=== PATIENT | female | born 1940 | race Caucasian/White ===

== ENCOUNTER 2024-05-18 13:31 | Outpatient (AMB) | payer MEDICARE, BC, SELFPAY ==
[2024-05-18 13:43] VITALS: BP 130/64; PULSE 65; RESP 18; TEMP 36.6; O2SAT 92; BMI 38.1
--- NOTE | 2024-05-18 13:43 | PD.ORTHCLVIS ---
Vital signs 05/18/24 13:43 Height 1.57 m Height Method Stated Weight 94.092 kg Weight Measurement Method Standing Scale BMI 38.1 BP 130/64 Blood Pressure Source Automatic Cuff Blood Pressure Location Right Upper Arm Position Sitting Respiration 18 Pulse 65 Pulse Source Monitor Temp 97.9 F Temp Source Temporal Artery Scan Pulse Oximetry (%) 92 L Oxygen Delivery Method Room Air Med/Allergies Allergies & Medications Allergies No Known Allergies Allergy (Verified 05/18/24 13:45) Medication Reconciliation albuterol sulfate 90 mcg/actuation aerosol inhaler 1 inh inhalation QID 02/17/24 [History Confirmed 05/18/24] ascorbic acid (vitamin C) 500 mg capsule mg PO 02/17/24 [History Confirmed 05/18/24] betamethasone dipropionate 0.05 % topical cream 1 applic topical QDAY PRN 02/17/24 [History Confirmed 05/18/24] celecoxib 100 mg capsule (Celebrex) 100 mg PO BID 02/17/24 [History Confirmed 05/18/24] cephalexin 250 mg capsule 250 mg PO BID 02/17/24 [History Confirmed 05/18/24] cholecalciferol (vitamin D3) 50 mcg (2,000 unit) capsule 50 mcg PO QDAY 02/17/24 [History Confirmed 05/18/24] clopidogrel 75 mg tablet (Plavix) 75 mg PO QDAY 02/17/24 [History Confirmed 05/18/24] coenzyme Q10 200 mg/gram oral powder (H2Q CoQ10) mg PO 02/17/24 [History Confirmed 05/18/24] eszopiclone 2 mg tablet (Lunesta) 2 mg PO QHS 02/17/24 [History Confirmed 05/18/24] fentanyl 50 mcg/hr transdermal patch 1 patch transdermal Q72H 02/17/24 [History Confirmed 05/18/24] fluticasone 250 mcg-salmeterol 50 mcg/dose blistr powdr for inhalation (Advair Diskus) 1 inh inhalation BID 02/17/24 [History Confirmed 05/18/24] furosemide 20 mg tablet (Lasix) 20 mg PO Q OTHER DAY 02/17/24 [History Confirmed 05/18/24] gabapentin 300 mg capsule 300 mg PO QDAY 02/17/24 [History Confirmed 05/18/24] hydrocodone bitartrate 10 mg capsule, oral only, extended rel 12 hr 10 mg PO Q12H 02/17/24 [History Confirmed 05/18/24] losartan 50 mg tablet 50 mg PO QDAY 02/17/24 [History Confirmed 05/18/24] mecobalamin (vitamin B12) 2,500 mcg chewable tablet mcg PO 02/17/24 [History Confirmed 05/18/24] methenamine hippurate 1 gram tablet 1 g PO Q12H 02/17/24 [History Confirmed 05/18/24] montelukast 10 mg tablet (Singulair) 10 mg PO QDAY 02/17/24 [History Confirmed 05/18/24] naldemedine 0.2 mg tablet (Symproic) 0.2 mg PO QDAY 02/17/24 [History Confirmed 05/18/24] nitroglycerin 0.4 % (w/w) rectal ointment 1 inch [place] BID 02/17/24 [History Confirmed 05/18/24] omega-3 650 mg-dha 400 mg-epa 200 mg-fish oil-vit D3 300 unit capsule cap PO 02/17/24 [History Confirmed 05/18/24] omeprazole 20 mg capsule,delayed release 20 mg PO QDAY 02/17/24 [History Confirmed 05/18/24] prednisone 20 mg tablet 20 mg PO QDAY 02/17/24 [History Confirmed 05/18/24] rosuvastatin 20 mg tablet 20 mg PO QDAY 02/17/24 [History Confirmed 05/18/24] sertraline 20 mg/mL oral concentrate (Zoloft) 50 mg PO QDAY 02/17/24 [History Confirmed 05/18/24] triamcinolone acetonide 55 mcg nasal spray aerosol (24 Hour Nasal Allergy) 1 spray intranasal QDAY 02/17/24 [History Confirmed 05/18/24] vitamin E (dl, acetate) 180 mg (400 unit) capsule 180 mg PO QDAY 02/17/24 [History Confirmed 05/18/24] Subjective Visit Visit for: follow up visit and knee Immunization / Flu Flu Vaccine in the Last 12 Months: Yes Flu Vaccine Exclusion Criteria: Already Received History of Present Illness Chief complaint: F/U KNEE INJECTIONS Patient is a pleasant 83-year-old female with bilateral knee pain worse on the right. This been ongoing for several years. She tried multiple injections with me. She recently had a valve replacement 1 month ago is on Plavix. She is looking for 6 continue conservative treatment at this time Personal History Occupation: RETIRED Pain Pain level (0-10): 4 Pain duration: ALL DAY Pain location: inside (medial), outside (lateral), anterior and posterior Pain quality: sharp, dull and aching Pain timing: increases with activity Associated signs & symptoms: none Ambulatory data Ambulatory device: walker Treatments Improvement with previous injections: No Improvement with PT: No Improvement with NSAIDS: n/a Review of Systems Review of Systems: All systems negative unless otherwise noted in HPI. Exam Exam Patient is in no acute distress and is cooperative with the examination today. Breathing is nonlabored. In no respiratory distress. Bilateral extremities were evaluated and demonstrates sensation intact to light touch. Palpable pedal pulses are present. No significant edema is present. Bilateral hips were examined. The patient has no pain with log roll of the hips. Internal rotation to 30 degrees and external rotation to 30 degrees is painless. Negative FADIR. The left knee was examined. The left knee is in [varus] alignment. Range of motion from [0-115] degrees. Knee is stable to varus and valgus as well as AP translation with <5mm. Patient has a [negative] McMurrays. There is [no] pain with patellofemoral compression and [no] crepitus noted. The knee is [tender] to palpation [medially]. The right knee was also examined. The right knee is in [varus] alignment. Range of motion from [0-120] degrees. Knee is stable to varus and valgus as well as AP translation with <5mm. Patient has a [negative] McMurrays. There is [no] pain with patellofemoral compression and [no] crepitus noted. The knee is [tender] to palpation [medially]. Assessment and Plan Problem List (1) Degenerative arthritis of knee, bilateral: Status: Acute Plan: 83-year-old female with bilateral knee pain and bilateral knee osteoarthritis. We discussed nonoperative and operative options. Given she had a recent valve replacement we recommend nonoperative treatment. She would like a left knee injection today Recommend knee cortisone injection as patient would like to proceed with conservative treatment at this time. The risks and benefits of the procedure were reviewed with the patient and patient gave verbal consent to continue with the procedure. Procedure: performed by Dr. Nava Using sterile technique the left knee was thoroughly prepped with alcohol, and approximately 1 cc of Kenalog 40 mg/mL and 4 cc of 1% lidocaine was injected without resistance into the medial tibial femoral joint space. The patient tolerated the procedure. (2) Bilateral knee pain: Status: Acute Advanced Care Planning Discussion Advance care planning discussed with:: patient Office Procedures GNS Level of Care Nursing/Assessment Patient Status: Established Patient Nursing Assessment/Reassesment: Medication Reconciliation, Update PMH in EMR and Vital Signs Coordination of Care: Complex Care and Chronic Disease 1-5, Education Complex Pt/Fam, Consent,records obtained, informed consent, Results/Orders obtained and Staff clarify orders Special Needs: Language special needs Established Patient Charge Established Patient Point Assignment: 95 Established Patient Point Charge: EP Level 3 (80-115) Surgical Proc/IM SQ injection Major Surgical Procedure: Yes (KNEE INJECTION) Medication Given Medication Given Medication Given: Yes Documented Dose Given: 4 Route: Infiitration Medication Given Medication Given Medication Given: Yes Documented Dose Given: 1 Route: Infiitration Office Meds Xylocaine 10 mg/mL (1 %) injection solution Performing Provider: Hever Nava MD Performing Location: [facility] Administered by: Hever Nava MD on 05/18/24 14:23 Dose Route Admin Location Dispensed Lot Number Expiration Date [facility] [place] [employer] 20 mL Infiltration 20 mL [id number] [facility] triamcinolone acetonide 40 mg/mL suspension for injection Performing Provider: Hever Nava MD Performing Location: [facility] Administered by: Hever Nava MD on 05/18/24 14:23 Dose Route Admin Location Dispensed Lot Number Expiration Date [facility] [place] [employer] 40 mg intra-articular 1 mL [id number] [employer] Past Medical History Past Medical History Have you ever been diagnosed with any of the following: Respiratory Problems Smoking: No Smoking Exposure: No
== END 2024-05-18 14:14 | disposition home or self-care (01) ==
PROVIDERS: Supervising Provider Orthopaedic Surgery Adult Reconstructive Orthopaedic Surgery; Visit Provider Orthopaedic Surgery Adult Reconstructive Orthopaedic Surgery
DX: M17.0 Bilateral primary osteoarthritis of knee (principal); M25.562 Pain in left knee; M25.561 Pain in right knee; Z95.2 Presence of prosthetic heart valve
CPT/HCPCS: 20610; 99213; J3301; J3490; G0463

== ENCOUNTER 2024-06-18 12:57 | Outpatient (AMB) | payer MEDICARE, BC, SELFPAY ==
[2024-06-18 13:07] VITALS: BP 141/79; PULSE 67; RESP 18; TEMP 36.1; O2SAT 95; BMI 37.2
--- NOTE | 2024-06-18 13:07 | PD.ORTHCLVIS ---
Vital signs 06/18/24 13:07 Height 1.57 m Height Method Stated Weight 91.711 kg Weight Measurement Method Standing Scale BMI 37.2 BP 141/79 H Blood Pressure Source Automatic Cuff Blood Pressure Location Right Upper Arm Position Sitting Respiration 18 Pulse 67 Pulse Source Monitor Temp 97.0 F Temp Source Temporal Artery Scan Pulse Oximetry (%) 95 Oxygen Delivery Method Room Air Med/Allergies Allergies & Medications Allergies No Known Allergies Allergy (Verified 06/18/24 13:07) Medication Reconciliation albuterol sulfate 90 mcg/actuation aerosol inhaler 1 inh inhalation QID 02/17/24 [History Confirmed 06/18/24] ascorbic acid (vitamin C) 500 mg capsule mg PO 02/17/24 [History Confirmed 06/18/24] betamethasone dipropionate 0.05 % topical cream 1 applic topical QDAY PRN 02/17/24 [History Confirmed 06/18/24] celecoxib 100 mg capsule (Celebrex) 100 mg PO BID 02/17/24 [History Confirmed 06/18/24] cephalexin 250 mg capsule 250 mg PO BID 02/17/24 [History Confirmed 06/18/24] cholecalciferol (vitamin D3) 50 mcg (2,000 unit) capsule 50 mcg PO QDAY 02/17/24 [History Confirmed 06/18/24] clopidogrel 75 mg tablet (Plavix) 75 mg PO QDAY 02/17/24 [History Confirmed 06/18/24] coenzyme Q10 200 mg/gram oral powder (H2Q CoQ10) mg PO 02/17/24 [History Confirmed 06/18/24] eszopiclone 2 mg tablet (Lunesta) 2 mg PO QHS 02/17/24 [History Confirmed 06/18/24] fentanyl 50 mcg/hr transdermal patch 1 patch transdermal Q72H 02/17/24 [History Confirmed 06/18/24] fluticasone 250 mcg-salmeterol 50 mcg/dose blistr powdr for inhalation (Advair Diskus) 1 inh inhalation BID 02/17/24 [History Confirmed 06/18/24] furosemide 20 mg tablet (Lasix) 20 mg PO Q OTHER DAY 02/17/24 [History Confirmed 06/18/24] gabapentin 300 mg capsule 300 mg PO QDAY 02/17/24 [History Confirmed 06/18/24] hydrocodone bitartrate 10 mg capsule, oral only, extended rel 12 hr 10 mg PO Q12H 02/17/24 [History Confirmed 06/18/24] losartan 50 mg tablet 50 mg PO QDAY 02/17/24 [History Confirmed 06/18/24] mecobalamin (vitamin B12) 2,500 mcg chewable tablet mcg PO 02/17/24 [History Confirmed 06/18/24] methenamine hippurate 1 gram tablet 1 g PO Q12H 02/17/24 [History Confirmed 06/18/24] montelukast 10 mg tablet (Singulair) 10 mg PO QDAY 02/17/24 [History Confirmed 06/18/24] naldemedine 0.2 mg tablet (Symproic) 0.2 mg PO QDAY 02/17/24 [History Confirmed 06/18/24] nitroglycerin 0.4 % (w/w) rectal ointment 1 inch [place] BID 02/17/24 [History Confirmed 06/18/24] omega-3 650 mg-dha 400 mg-epa 200 mg-fish oil-vit D3 300 unit capsule cap PO 02/17/24 [History Confirmed 06/18/24] omeprazole 20 mg capsule,delayed release 20 mg PO QDAY 02/17/24 [History Confirmed 06/18/24] prednisone 20 mg tablet 20 mg PO QDAY 02/17/24 [History Confirmed 06/18/24] rosuvastatin 20 mg tablet 20 mg PO QDAY 02/17/24 [History Confirmed 06/18/24] sertraline 20 mg/mL oral concentrate (Zoloft) 50 mg PO QDAY 02/17/24 [History Confirmed 06/18/24] triamcinolone acetonide 55 mcg nasal spray aerosol (24 Hour Nasal Allergy) 1 spray intranasal QDAY 02/17/24 [History Confirmed 06/18/24] vitamin E (dl, acetate) 180 mg (400 unit) capsule 180 mg PO QDAY 02/17/24 [History Confirmed 06/18/24] Subjective Visit Visit for: follow up visit Immunization / Flu Flu Vaccine in the Last 12 Months: Yes Flu Vaccine Exclusion Criteria: Already Received History of Present Illness Chief complaint: FOLLOW UP VISIT Patient is a pleasant 83-year-old female with bilateral knee pain worse on the right. This been ongoing for several years. She tried multiple injections with me. She recently had a valve replacement 3 month ago is on Plavix. She is looking to continue conservative treatment at this time Personal History Occupation: RETIRED Pain Pain level (0-10): 0 Pain duration: ALL DAY Pain location: inside (medial), outside (lateral), anterior and posterior Pain quality: sharp, dull and aching Pain timing: increases with activity Associated signs & symptoms: none Ambulatory data Ambulatory device: none Treatments Improvement with previous injections: No Improvement with PT: No Improvement with NSAIDS: n/a Review of Systems Review of Systems: All systems negative unless otherwise noted in HPI. Exam Exam Patient is in no acute distress and is cooperative with the examination today. Breathing is nonlabored. In no respiratory distress. Bilateral extremities were evaluated and demonstrates sensation intact to light touch. Palpable pedal pulses are present. No significant edema is present. Bilateral hips were examined. The patient has no pain with log roll of the hips. Internal rotation to 30 degrees and external rotation to 30 degrees is painless. Negative FADIR. The left knee was examined. The left knee is in [varus] alignment. Range of motion from [0-115] degrees. Knee is stable to varus and valgus as well as AP translation with <5mm. Patient has a [negative] McMurrays. There is [no] pain with patellofemoral compression and [no] crepitus noted. The knee is [tender] to palpation [medially]. The right knee was also examined. The right knee is in [varus] alignment. Range of motion from [0-120] degrees. Knee is stable to varus and valgus as well as AP translation with <5mm. Patient has a [negative] McMurrays. There is [no] pain with patellofemoral compression and [no] crepitus noted. The knee is [tender] to palpation [medially]. Bilateral knee x-rays demonstrate severe arthritis in both knees. The left is greater than the right but there is complete joint space obliteration Assessment and Plan Problem List (1) Degenerative arthritis of knee, bilateral: Status: Acute Plan: 83-year-old female with bilateral knee pain and bilateral knee osteoarthritis. We discussed nonoperative and operative options. Given she had a recent valve replacement we recommend nonoperative treatment. She is doing well with a cortisone injection and we will thus hold off for now. (2) Bilateral knee pain: Status: Acute Advanced Care Planning Discussion Advance care planning discussed with:: patient Office Procedures GNS Level of Care Nursing/Assessment Patient Status: Established Patient Nursing Assessment/Reassesment: Medication Reconciliation, Update PMH in EMR and Vital Signs Coordination of Care: Complex Care and Chronic Disease 1-5, Education Complex Pt/Fam, Consent,records obtained, informed consent, Results/Orders obtained and Staff clarify orders Established Patient Charge Established Patient Point Assignment: 95 Established Patient Point Charge: EP Level 3 (80-115) Past Medical History Past Medical History Have you ever been diagnosed with any of the following: Respiratory Problems Smoking: No Smoking Exposure: No
== END 2024-06-18 13:20 | disposition home or self-care (01) ==
LOC: HODSRG 12:57
PROVIDERS: PCP Internal Medicine Hospice and Palliative Medicine; Referring Provider Internal Medicine Hospice and Palliative Medicine; Supervising Provider Orthopaedic Surgery Adult Reconstructive Orthopaedic Surgery; Visit Provider Orthopaedic Surgery Adult Reconstructive Orthopaedic Surgery
DX: M17.0 Bilateral primary osteoarthritis of knee (principal); M25.562 Pain in left knee; M25.561 Pain in right knee; Z95.2 Presence of prosthetic heart valve; Z79.02 Long term (current) use of antithrombotics/antiplatelets
CPT/HCPCS: 99213; G0463

== ENCOUNTER 2024-08-17 13:20 | Outpatient (AMB) | payer MEDICARE, BC, SELFPAY ==
[2024-08-17 13:28] VITALS: BP 122/82; PULSE 69; RESP 18; TEMP 36; O2SAT 95; BMI 36.6
--- NOTE | 2024-08-17 13:28 | PD.ORTHCLVIS ---
Vital signs 08/17/24 13:28 Height 1.57 m Height Method Stated Weight 90.322 kg Weight Measurement Method Standing Scale BMI 36.6 BP 122/82 Blood Pressure Source Automatic Cuff Blood Pressure Location Right Upper Arm Position Sitting Respiration 18 Pulse 69 Pulse Source Monitor Temp 96.8 F Temp Source Temporal Artery Scan Pulse Oximetry (%) 95 Oxygen Delivery Method Room Air Med/Allergies Allergies & Medications Allergies No Known Allergies Allergy (Verified 08/17/24 13:39) Medication Reconciliation albuterol sulfate 90 mcg/actuation aerosol inhaler 1 inh inhalation QID 02/17/24 [History Confirmed 08/17/24] ascorbic acid (vitamin C) 500 mg capsule mg PO 02/17/24 [History Confirmed 08/17/24] betamethasone dipropionate 0.05 % topical cream 1 applic topical QDAY PRN 02/17/24 [History Confirmed 08/17/24] celecoxib 100 mg capsule (Celebrex) 100 mg PO BID 02/17/24 [History Confirmed 08/17/24] cephalexin 250 mg capsule 250 mg PO BID 02/17/24 [History Confirmed 08/17/24] cholecalciferol (vitamin D3) 50 mcg (2,000 unit) capsule 50 mcg PO QDAY 02/17/24 [History Confirmed 08/17/24] clopidogrel 75 mg tablet (Plavix) 75 mg PO QDAY 02/17/24 [History Confirmed 08/17/24] coenzyme Q10 200 mg/gram oral powder (H2Q CoQ10) mg PO 02/17/24 [History Confirmed 08/17/24] eszopiclone 2 mg tablet (Lunesta) 2 mg PO QHS 02/17/24 [History Confirmed 08/17/24] fentanyl 50 mcg/hr transdermal patch 1 patch transdermal Q72H 02/17/24 [History Confirmed 08/17/24] fluticasone 250 mcg-salmeterol 50 mcg/dose blistr powdr for inhalation (Advair Diskus) 1 inh inhalation BID 02/17/24 [History Confirmed 08/17/24] furosemide 20 mg tablet (Lasix) 20 mg PO Q OTHER DAY 02/17/24 [History Confirmed 08/17/24] gabapentin 300 mg capsule 300 mg PO QDAY 02/17/24 [History Confirmed 08/17/24] hydrocodone bitartrate 10 mg capsule, oral only, extended rel 12 hr 10 mg PO Q12H 02/17/24 [History Confirmed 08/17/24] losartan 50 mg tablet 50 mg PO QDAY 02/17/24 [History Confirmed 08/17/24] mecobalamin (vitamin B12) 2,500 mcg chewable tablet mcg PO 02/17/24 [History Confirmed 08/17/24] methenamine hippurate 1 gram tablet 1 g PO Q12H 02/17/24 [History Confirmed 08/17/24] montelukast 10 mg tablet (Singulair) 10 mg PO QDAY 02/17/24 [History Confirmed 08/17/24] naldemedine 0.2 mg tablet (Symproic) 0.2 mg PO QDAY 02/17/24 [History Confirmed 08/17/24] nitroglycerin 0.4 % (w/w) rectal ointment 1 inch [place] BID 02/17/24 [History Confirmed 08/17/24] omega-3 650 mg-dha 400 mg-epa 200 mg-fish oil-vit D3 300 unit capsule cap PO 02/17/24 [History Confirmed 08/17/24] omeprazole 20 mg capsule,delayed release 20 mg PO QDAY 02/17/24 [History Confirmed 08/17/24] prednisone 20 mg tablet 20 mg PO QDAY 02/17/24 [History Confirmed 08/17/24] rosuvastatin 20 mg tablet 20 mg PO QDAY 02/17/24 [History Confirmed 08/17/24] sertraline 20 mg/mL oral concentrate (Zoloft) 50 mg PO QDAY 02/17/24 [History Confirmed 08/17/24] triamcinolone acetonide 55 mcg nasal spray aerosol (24 Hour Nasal Allergy) 1 spray intranasal QDAY 02/17/24 [History Confirmed 08/17/24] vitamin E (dl, acetate) 180 mg (400 unit) capsule 180 mg PO QDAY 02/17/24 [History Confirmed 08/17/24] Exam Exam Patient is in no acute distress and is cooperative with the examination today. Breathing is nonlabored. In no respiratory distress. Bilateral extremities were evaluated and demonstrates sensation intact to light touch. Palpable pedal pulses are present. No significant edema is present. Bilateral hips were examined. The patient has no pain with log roll of the hips. Internal rotation to 30 degrees and external rotation to 30 degrees is painless. Negative FADIR. The left knee was examined. The left knee is in [varus] alignment. Range of motion from [0-115] degrees. Knee is stable to varus and valgus as well as AP translation with <5mm. Patient has a [negative] McMurrays. There is [no] pain with patellofemoral compression and [no] crepitus noted. The knee is [tender] to palpation [medially]. The right knee was also examined. The right knee is in [varus] alignment. Range of motion from [0-120] degrees. Knee is stable to varus and valgus as well as AP translation with <5mm. Patient has a [negative] McMurrays. There is [no] pain with patellofemoral compression and [no] crepitus noted. The knee is [tender] to palpation [medially]. Bilateral knee x-rays demonstrate severe arthritis in both knees. The left is greater than the right but there is complete joint space obliteration Assessment and Plan Problem List (1) Degenerative arthritis of knee, bilateral: Status: Acute Plan: 83-year-old female with bilateral knee pain and bilateral knee osteoarthritis. We discussed nonoperative and operative options. Given she had a recent valve replacement we recommend nonoperative treatment. Recommend knee cortisone injection as patient would like to proceed with conservative treatment at this time. The risks and benefits of the procedure were reviewed with the patient and patient gave verbal consent to continue with the procedure. Procedure: performed by Dr. Nava Using sterile technique the Right knee was thoroughly prepped with alcohol, and approximately 1 cc of Kenalog 40 mg/mL and 4 cc of 1% lidocaine was injected without resistance into the medial tibial femoral joint space. The patient tolerated the procedure. (2) Bilateral knee pain: Status: Acute Advanced Care Planning Discussion Advance care planning discussed with:: patient Office Procedures GNS Level of Care Nursing/Assessment Patient Status: Established Patient Nursing Assessment/Reassesment: Medication Reconciliation, Update PMH in EMR and Vital Signs Coordination of Care: Complex Care and Chronic Disease 1-5, Education Complex Pt/Fam, Consent,records obtained, informed consent, Results/Orders obtained and Staff clarify orders Established Patient Charge Established Patient Point Assignment: 95 Established Patient Point Charge: EP Level 3 (80-115) Medication Given Medication Given Medication Given: Yes Documented Dose Given: 4 Route: Infiitration Medication Given Medication Given Medication Given: Yes Documented Dose Given: 1 Route: Infiitration Office Meds Xylocaine 10 mg/mL (1 %) injection solution Performing Provider: Hever Nava MD Performing Location: [facility] Administered by: Hever Nava MD on 08/17/24 13:40 Dose Route Admin Location Dispensed Lot Number Expiration Date [facility] [place] [employer] 20 mL Infiltration 20 mL [id number] [facility] triamcinolone acetonide 40 mg/mL suspension for injection Performing Provider: Hever Nava MD Performing Location: [facility] Administered by: Hever Nava MD on 08/17/24 13:40 Dose Route Admin Location Dispensed Lot Number Expiration Date [facility] [place] [employer] 40 mg intra-articular RIGHT KNEE 1 mL [id number] 11/25/25 [id number] [employer] MA Intake Visit Data Collection New Patient or Established: Established Patient (seen at [facility] within 3 years) Reason for Visit:: KNEE INJECTION Seen by Clinical Staff ONLY (RN/MA): No Verbal consent obtained for Telemed visit?: No Xm1 [employer] Required: No PCP or OBGYN visit in last 3 months: Yes Hx Now: No Do You Feel Safe at Home: Yes Authorities Contacted: N/A Questionairres Past Medical History Past Medical History Have you ever been diagnosed with any of the following: Respiratory Problems Smoking: No Smoking Exposure: No Subjective Visit Visit for: follow up visit, knee and injections Immunization / Flu Flu Vaccine in the Last 12 Months: Yes Flu Vaccine Exclusion Criteria: Already Received History of Present Illness Chief complaint: right knee replacement Patient is a pleasant 83-year-old female with bilateral knee pain worse on the right. This been ongoing for several years. She tried multiple injections with me. She recently had a valve replacement 6 month ago is on Plavix. She is looking to continue conservative treatment at this time Pain Pain level (0-10): 5 Ambulatory data Ambulatory device: walker Treatments Improvement with previous injections: Yes Improvement with PT: No Improvement with NSAIDS: no Review of Systems Review of Systems: All systems negative unless otherwise noted in HPI.
== END 2024-08-17 14:08 | disposition home or self-care (01) ==
PROVIDERS: PCP Internal Medicine Hospice and Palliative Medicine; Referring Provider Internal Medicine Hospice and Palliative Medicine; Supervising Provider Orthopaedic Surgery Adult Reconstructive Orthopaedic Surgery; Visit Provider Orthopaedic Surgery Adult Reconstructive Orthopaedic Surgery
DX: M17.0 Bilateral primary osteoarthritis of knee (principal); M25.562 Pain in left knee; M25.561 Pain in right knee; Z95.2 Presence of prosthetic heart valve
CPT/HCPCS: 20610; 99213; J3301; J3490; G0463

== ENCOUNTER 2024-11-16 12:54 | Outpatient (AMB) | payer MEDICARE, BC, SELFPAY ==
[2024-11-16 13:03] VITALS: BP 124/72; PULSE 70; RESP 18; TEMP 36.2; O2SAT 93; BMI 34.9
--- NOTE | 2024-11-16 13:03 | PD.ORTHCLVIS ---
Vital signs 11/16/24 13:03 Height 1.57 m Height Method Stated Weight 86.268 kg Weight Measurement Method Standing Scale BMI 34.9 BP 124/72 Blood Pressure Source Automatic Cuff Blood Pressure Location Left Upper Arm Position Sitting Respiration 18 Pulse 70 Pulse Source Monitor Temp 97.1 F Temp Source Temporal Artery Scan Pulse Oximetry (%) 93 L Oxygen Delivery Method Room Air Med/Allergies Allergies & Medications Allergies No Known Allergies Allergy (Verified 11/16/24 13:04) Medication Reconciliation albuterol sulfate 90 mcg/actuation aerosol inhaler 1 inh inhalation QID 02/17/24 [History Confirmed 11/16/24] ascorbic acid (vitamin C) 500 mg capsule mg PO 02/17/24 [History Confirmed 11/16/24] betamethasone dipropionate 0.05 % topical cream 1 applic topical QDAY PRN 02/17/24 [History Confirmed 11/16/24] celecoxib 100 mg capsule (Celebrex) 100 mg PO BID 02/17/24 [History Confirmed 11/16/24] cephalexin 250 mg capsule 250 mg PO BID 02/17/24 [History Confirmed 11/16/24] cholecalciferol (vitamin D3) 50 mcg (2,000 unit) capsule 50 mcg PO QDAY 02/17/24 [History Confirmed 11/16/24] clopidogrel 75 mg tablet (Plavix) 75 mg PO QDAY 02/17/24 [History Confirmed 11/16/24] coenzyme Q10 200 mg/gram oral powder (H2Q CoQ10) mg PO 02/17/24 [History Confirmed 11/16/24] eszopiclone 2 mg tablet (Lunesta) 2 mg PO QHS 02/17/24 [History Confirmed 11/16/24] fentanyl 50 mcg/hr transdermal patch 1 patch transdermal Q72H 02/17/24 [History Confirmed 11/16/24] fluticasone 250 mcg-salmeterol 50 mcg/dose blistr powdr for inhalation (Advair Diskus) 1 inh inhalation BID 02/17/24 [History Confirmed 11/16/24] furosemide 20 mg tablet (Lasix) 20 mg PO Q OTHER DAY 02/17/24 [History Confirmed 11/16/24] gabapentin 300 mg capsule 300 mg PO QDAY 02/17/24 [History Confirmed 11/16/24] hydrocodone bitartrate 10 mg capsule, oral only, extended rel 12 hr 10 mg PO Q12H 02/17/24 [History Confirmed 11/16/24] losartan 50 mg tablet 50 mg PO QDAY 02/17/24 [History Confirmed 11/16/24] mecobalamin (vitamin B12) 2,500 mcg chewable tablet mcg PO 02/17/24 [History Confirmed 11/16/24] methenamine hippurate 1 gram tablet 1 g PO Q12H 02/17/24 [History Confirmed 11/16/24] montelukast 10 mg tablet (Singulair) 10 mg PO QDAY 02/17/24 [History Confirmed 11/16/24] naldemedine 0.2 mg tablet (Symproic) 0.2 mg PO QDAY 02/17/24 [History Confirmed 11/16/24] nitroglycerin 0.4 % (w/w) rectal ointment 1 inch PA BID 02/17/24 [History Confirmed 11/16/24] omega-3 650 mg-dha 400 mg-epa 200 mg-fish oil-vit D3 300 unit capsule cap PO 02/17/24 [History Confirmed 11/16/24] omeprazole 20 mg capsule,delayed release 20 mg PO QDAY 02/17/24 [History Confirmed 11/16/24] prednisone 20 mg tablet 20 mg PO QDAY 02/17/24 [History Confirmed 11/16/24] rosuvastatin 20 mg tablet 20 mg PO QDAY 02/17/24 [History Confirmed 11/16/24] sertraline 20 mg/mL oral concentrate (Zoloft) 50 mg PO QDAY 02/17/24 [History Confirmed 11/16/24] triamcinolone acetonide 55 mcg nasal spray aerosol (24 Hour Nasal Allergy) 1 spray intranasal QDAY 02/17/24 [History Confirmed 11/16/24] vitamin E (dl, acetate) 180 mg (400 unit) capsule 180 mg PO QDAY 02/17/24 [History Confirmed 11/16/24] Exam Exam Patient is in no acute distress and is cooperative with the examination today. Breathing is nonlabored. In no respiratory distress. Bilateral extremities were evaluated and demonstrates sensation intact to light touch. Palpable pedal pulses are present. No significant edema is present. Bilateral hips were examined. The patient has no pain with log roll of the hips. Internal rotation to 30 degrees and external rotation to 30 degrees is painless. Negative FADIR. The left knee was examined. The left knee is in [varus] alignment. Range of motion from [0-115] degrees. Knee is stable to varus and valgus as well as AP translation with <5mm. Patient has a [negative] McMurrays. There is [no] pain with patellofemoral compression and [no] crepitus noted. The knee is [tender] to palpation [medially]. The right knee was also examined. The right knee is in [varus] alignment. Range of motion from [0-120] degrees. Knee is stable to varus and valgus as well as AP translation with <5mm. Patient has a [negative] McMurrays. There is [no] pain with patellofemoral compression and [no] crepitus noted. The knee is [tender] to palpation [medially]. Bilateral knee x-rays demonstrate severe arthritis in both knees. The left is greater than the right but there is complete joint space obliteration Assessment and Plan Problem List (1) Degenerative arthritis of knee, bilateral: Status: Acute Plan: 83-year-old female with bilateral knee pain and bilateral knee osteoarthritis. We discussed nonoperative and operative options. Given she had a recent valve replacement we recommend nonoperative treatment. Recommend knee cortisone injections as patient would like to proceed with conservative treatment at this time. The risks and benefits of the procedure were reviewed with the patient and patient gave verbal consent to continue with the procedure. Procedure: performed by Dr. Nava Using sterile technique the Bilateral knees were thoroughly prepped with alcohol, and approximately 1 cc of Kenalog 40 mg/mL and 4 cc of 1% lidocaine was injected into each knee without resistance into the medial tibial femoral joint space. The patient tolerated the procedure. (2) Bilateral knee pain: Status: Acute Advanced Care Planning Discussion Advance care planning discussed with:: patient Office Procedures GNS Level of Care Nursing/Assessment Patient Status: Established Patient Nursing Assessment/Reassesment: Medication Reconciliation, Update PMH in EMR and Vital Signs Coordination of Care: Complex Care and Chronic Disease 1-5, Education Complex Pt/Fam, Consent,records obtained, informed consent, Results/Orders obtained and Staff clarify orders Established Patient Charge Established Patient Point Assignment: 95 Established Patient Point Charge: EP Level 3 (80-115) Surgical Proc/IM SQ injection Major Surgical Procedure: Yes (KNEE INJECTIONS ) Medication Given Medication Given Medication Given: Yes Documented Dose Given: 8 Route: Infiitration Medication Given Medication Given Medication Given: Yes Documented Dose Given: 2 Route: Infiitration Office Meds Xylocaine 10 mg/mL (1 %) injection solution Performing Provider: Hever Nava MD Performing Location: [facility] Administered by: Hever Nava MD on 11/16/24 14:08 Dose Route Admin Location Dispensed Lot Number Expiration Date [facility] Bill Distributor 40 mL Infiltration 40 mL [id number] 12/27/27 76126-342-77 [facility] triamcinolone acetonide 40 mg/mL suspension for injection Performing Provider: Hever Nava MD Performing Location: [facility] Administered by: Hever Nava MD on 11/16/24 14:08 Dose Route Admin Location Dispensed Lot Number Expiration Date [facility] Bill Distributor 80 mg intra-articular 2 mL [id number] 04/27/26 5331-5602-78 [employer] [place] Intake Visit Data Collection New Patient or Established: Established Patient (seen at [facility] within 3 years) Reason for Visit:: BILATERAL KNEE INJECTIONS Seen by Clinical Staff ONLY (RN/MA): No PCP or OBGYN visit in last 3 months: Yes Hx Now: No Do You Feel Safe at Home: Yes Authorities Contacted: N/A Questionairres Past Medical History Past Medical History Have you ever been diagnosed with any of the following: Respiratory Problems Smoking: No Smoking Exposure: No Subjective Visit Visit for: follow up visit, knee (BILATERAL) and injections Immunization / Flu Flu Vaccine in the Last 12 Months: No Flu Vaccine Exclusion Criteria: No Exclusion Criteria History of Present Illness Chief complaint: right knee replacement Patient is a pleasant 83-year-old female with bilateral knee pain worse on the right. This been ongoing for several years. She tried multiple injections with me. She recently had a valve replacement 6 month ago is on Plavix. She is looking to continue conservative treatment at this time Pain Pain level (0-10): 6 Pain duration: ON AND OFF Pain location: anterior Pain quality: dull and aching Pain timing: increases with activity Associated signs & symptoms: weakness Ambulatory data Ambulatory device: walker Treatments Number of previous injections: 1 Improvement with previous injections: Yes Improvement with PT: No Improvement with NSAIDS: no Review of Systems Review of Systems: All systems negative unless otherwise noted in HPI.
== END 2024-11-16 13:15 | disposition home or self-care (01) ==
PROVIDERS: PCP Internal Medicine Hospice and Palliative Medicine; Referring Provider Internal Medicine Hospice and Palliative Medicine; Supervising Provider Orthopaedic Surgery Adult Reconstructive Orthopaedic Surgery; Visit Provider Orthopaedic Surgery Adult Reconstructive Orthopaedic Surgery
DX: M17.0 Bilateral primary osteoarthritis of knee (principal); Z95.2 Presence of prosthetic heart valve
CPT/HCPCS: 20610; 99213; J3301; J3490; G0463

== ENCOUNTER 2025-03-17 13:41 | Outpatient (AMB) | payer MEDICARE, BC, SELFPAY ==
--- NOTE | 2025-03-17 13:56 | ORTHONT_ITS ---
Vital signs 03/17/25 13:57 Height 1.57 m Height Method Stated Weight 76.657 kg Weight Measurement Method Standing Scale BMI 31.1 BP 116/64 Blood Pressure Source Automatic Cuff Blood Pressure Location Left Upper Arm Position Sitting Respiration 18 Pulse 61 Pulse Source Monitor Temp 97.4 F Temp Source Temporal Artery Scan Pulse Oximetry (%) 97 Oxygen Delivery Method Room Air Med/Allergies Allergies & Medications Allergies No Known Allergies Allergy (Verified 03/17/25 14:01) Medication Reconciliation albuterol sulfate 90 mcg/actuation aerosol inhaler 1 inh inhalation QID 02/17/24 [History Confirmed 03/17/25] ascorbic acid (vitamin C) 500 mg capsule mg PO 02/17/24 [History Confirmed 03/17/25] betamethasone dipropionate 0.05 % topical cream 1 applic topical QDAY PRN 02/17/24 [History Confirmed 03/17/25] celecoxib 100 mg capsule (Celebrex) 100 mg PO BID 02/17/24 [History Confirmed 03/17/25] cephalexin 250 mg capsule 250 mg PO BID 02/17/24 [History Confirmed 03/17/25] cholecalciferol (vitamin D3) 50 mcg (2,000 unit) capsule 50 mcg PO QDAY 02/17/24 [History Confirmed 03/17/25] clopidogrel 75 mg tablet (Plavix) 75 mg PO QDAY 02/17/24 [History Confirmed 03/17/25] coenzyme Q10 200 mg/gram oral powder (H2Q CoQ10) mg PO 02/17/24 [History Confirmed 03/17/25] eszopiclone 2 mg tablet (Lunesta) 2 mg PO QHS 02/17/24 [History Confirmed 03/17/25] fentanyl 50 mcg/hr transdermal patch 1 patch transdermal Q72H 02/17/24 [History Confirmed 03/17/25] fluticasone 250 mcg-salmeterol 50 mcg/dose blistr powdr for inhalation (Advair Diskus) 1 inh inhalation BID 02/17/24 [History Confirmed 03/17/25] furosemide 20 mg tablet (Lasix) 20 mg PO Q OTHER DAY 02/17/24 [History Confirmed 03/17/25] gabapentin 300 mg capsule 300 mg PO QDAY 02/17/24 [History Confirmed 03/17/25] hydrocodone bitartrate 10 mg capsule, oral only, extended rel 12 hr 10 mg PO Q12H 02/17/24 [History Confirmed 03/17/25] losartan 50 mg tablet 50 mg PO QDAY 02/17/24 [History Confirmed 03/17/25] mecobalamin (vitamin B12) 2,500 mcg chewable tablet mcg PO 02/17/24 [History Confirmed 03/17/25] methenamine hippurate 1 gram tablet 1 g PO Q12H 02/17/24 [History Confirmed 03/17/25] montelukast 10 mg tablet (Singulair) 10 mg PO QDAY 02/17/24 [History Confirmed 03/17/25] naldemedine 0.2 mg tablet (Symproic) 0.2 mg PO QDAY 02/17/24 [History Confirmed 03/17/25] nitroglycerin 0.4 % (w/w) rectal ointment 1 inch RI BID 02/17/24 [History Confirmed 03/17/25] omega-3 650 mg-dha 400 mg-epa 200 mg-fish oil-vit D3 300 unit capsule cap PO 02/17/24 [History Confirmed 03/17/25] omeprazole 20 mg capsule,delayed release 20 mg PO QDAY 02/17/24 [History Confirmed 03/17/25] prednisone 20 mg tablet 20 mg PO QDAY 02/17/24 [History Confirmed 03/17/25] rosuvastatin 20 mg tablet 20 mg PO QDAY 02/17/24 [History Confirmed 03/17/25] sertraline 20 mg/mL oral concentrate (Zoloft) 50 mg PO QDAY 02/17/24 [History Confirmed 03/17/25] triamcinolone acetonide 55 mcg nasal spray aerosol (24 Hour Nasal Allergy) 1 spray intranasal QDAY 02/17/24 [History Confirmed 03/17/25] vitamin E (dl, acetate) 180 mg (400 unit) capsule 180 mg PO QDAY 02/17/24 [History Confirmed 03/17/25] Exam Exam Patient is in no acute distress and is cooperative with the examination today. Breathing is nonlabored. In no respiratory distress. Bilateral extremities were evaluated and demonstrates sensation intact to light touch. Palpable pedal pulses are present. No significant edema is present. Bilateral hips were examined. The patient has no pain with log roll of the hips. Internal rotation to 30 degrees and external rotation to 30 degrees is painless. Negative FADIR. The left knee was examined. The left knee is in [varus] alignment. Range of motion from [0-115] degrees. Knee is stable to varus and valgus as well as AP translation with <5mm. Patient has a [negative] McMurrays. There is [no] pain with patellofemoral compression and [no] crepitus noted. The knee is [tender] to palpation [medially]. The right knee was also examined. The right knee is in [varus] alignment. Range of motion from [0-120] degrees. Knee is stable to varus and valgus as well as AP translation with <5mm. Patient has a [negative] McMurrays. There is [no] pain with patellofemoral compression and [no] crepitus noted. The knee is [tender] to palpation [medially]. Bilateral knee x-rays demonstrate severe arthritis in both knees. The left is greater than the right but there is complete joint space obliteration Assessment and Plan Problem List (1) Degenerative arthritis of knee, bilateral: Status: Acute Plan: 83-year-old female with bilateral knee pain and bilateral knee osteoarthritis. We discussed nonoperative and operative options. Given she had a recent valve replacement we recommend nonoperative treatment. Recommend knee cortisone injection as patient would like to proceed with conservative treatment at this time. The risks and benefits of the procedure were reviewed with the patient and patient gave verbal consent to continue with the procedure. Procedure: performed by Dr. Nava Using sterile technique the left knee was thoroughly prepped with alcohol, and approximately 1 cc of Depo-Medrol 80mg/mL and 4 cc of 0.2% ropivacaine was injected without resistance into the medial tibial femoral joint space. The patient tolerated the procedure. Recommend knee cortisone injection as patient would like to proceed with conservative treatment at this time. The risks and benefits of the procedure were reviewed with the patient and patient gave verbal consent to continue with the procedure. Procedure: performed by Dr. Nava Using sterile technique the Right knee was thoroughly prepped with alcohol, and approximately 1 cc of Depo-Medrol 80mg/mL and 4 cc of 0.2% ropivacaine was injected without resistance into the medial tibial femoral joint space. The patient tolerated the procedure. (2) Bilateral knee pain: Status: Acute Advanced Care Planning Discussion Advance care planning discussed with:: patient Office Procedures GNS Level of Care Nursing/Assessment Patient Status: Established Patient Nursing Assessment/Reassesment: Medication Reconciliation, Update PMH in EMR and Vital Signs Coordination of Care: Complex Care and Chronic Disease 1-5, Education Complex Pt/Fam, Consent,records obtained, informed consent, Results/Orders obtained and Staff clarify orders Established Patient Charge Established Patient Point Assignment: 95 Established Patient Point Charge: EP Level 3 (80-115) Surgical Proc/IM SQ injection Major Surgical Procedure: Yes (BILATERAL KNEE INJECTION) Medication Given Medication Given Medication Given: Yes Documented Dose Given: 1 Route: Infiitration Medication Given Medication Given Medication Given: Yes Documented Dose Given: 1 Route: Infiitration Medication Given Medication Given Medication Given: Yes Documented Dose Given: 4 Route: Infiitration Medication Given Medication Given Medication Given: Yes Documented Dose Given: 4 Route: Infiitration Office Meds methylprednisolone acetate 80 mg/mL suspension for injection Performing Provider: Hever Nava MD Performing Location: [facility] Administered by: Hever Nava MD on 03/17/25 14:18 Dose Route Admin Location Dispensed Lot Number Expiration Date [facility] Account [employer] 80 mg intra-articular 1 mL [id number] 12/24/26 [address]-9 [employer] methylprednisolone acetate 80 mg/mL suspension for injection Performing Provider: Hever Nava MD Performing Location: [facility] Administered by: Hever Nava MD on 03/17/25 14:18 Dose Route Admin Location Dispensed Lot Number Expiration Date [facility] [employer] 80 mg intra-articular 1 mL [id number] 12/24/26 [address]-5 [employer] ropivacaine (PF) 2 mg/mL (0.2 %) injection solution Performing Provider: Hever Nava MD Performing Location: [facility] Administered by: Hever Nava MD on 03/17/25 14:18 Dose Route Admin Location Dispensed Lot Number Expiration Date [facility] Account [employer] 20 mL Infiltration 20 mL [id number] 05/26/26 14657-173-31 [facility] ropivacaine (PF) 2 mg/mL (0.2 %) injection solution Performing Provider: Hever Nava MD Performing Location: [facility] Administered by: Hever Nava MD on 03/17/25 14:18 Dose Route Admin Location Dispensed Lot Number Expiration Date [facility] Account [employer] 20 mL Infiltration 20 mL [id number] 05/26/26 70168-171-19 [facility] Intake Visit Data Collection New Patient or Established: Established Patient (seen at [facility] within 3 years) Reason for Visit:: BL KNEE INJ Seen by Clinical Staff ONLY (RN/MA): No PCP or OBGYN visit in last 3 months: Yes Hx Now: No Do You Feel Safe at Home: Yes Authorities Contacted: N/A Questionairres Past Medical History Past Medical History Have you ever been diagnosed with any of the following: Respiratory Problems Smoking: No Smoking Exposure: No Subjective Visit Visit for: follow up visit, knee (BILATERAL) and injections Immunization / Flu Flu Vaccine in the Last 12 Months: No Flu Vaccine Exclusion Criteria: No Exclusion Criteria History of Present Illness Chief complaint: right knee replacement Patient is a pleasant 83-year-old female with bilateral knee pain worse on the right. This been ongoing for several years. She tried multiple injections with me. She recently had a valve replacement 9 month ago is on Plavix. She is looking to continue conservative treatment at this time Pain Pain level (0-10): 6 Pain duration: ON AND OFF Pain location: anterior Pain quality: dull and aching Pain timing: increases with activity Associated signs & symptoms: weakness Ambulatory data Ambulatory device: walker Treatments Number of previous injections: 1 Improvement with previous injections: Yes Improvement with PT: No Improvement with NSAIDS: no Review of Systems Review of Systems: All systems negative unless otherwise noted in HPI.
[2025-03-17 13:57] VITALS: BP 116/64; PULSE 61; RESP 18; TEMP 36.3; O2SAT 97; BMI 31.1
== END 2025-03-17 14:11 | disposition home or self-care (01) ==
LOC: HODSRG 13:41
PROVIDERS: PCP Internal Medicine Hospice and Palliative Medicine; Referring Provider Internal Medicine Hospice and Palliative Medicine; Supervising Provider Orthopaedic Surgery Adult Reconstructive Orthopaedic Surgery; Visit Provider Orthopaedic Surgery Adult Reconstructive Orthopaedic Surgery
DX: M17.0 Bilateral primary osteoarthritis of knee (principal); M25.561 Pain in right knee; M25.562 Pain in left knee; Z95.2 Presence of prosthetic heart valve
CPT/HCPCS: 20610; 99213; J1010; J2795; G0463

== ENCOUNTER 2025-06-21 12:55 | Outpatient (AMB) | payer MEDICARE, BC, SELFPAY ==
--- NOTE | 2025-06-21 13:08 | ORTHONT_ITS ---
Vital signs 06/21/25 13:09 Height 1.57 m Height Method Stated Weight 69.995 kg Weight Measurement Method Standing Scale BMI 28.3 BP 95/61 Blood Pressure Source Automatic Cuff Blood Pressure Location Right Upper Arm Position Sitting Respiration 18 Pulse 57 L Pulse Source Monitor Temp 97.5 F Temp Source Temporal Artery Scan Pulse Oximetry (%) 95 Oxygen Delivery Method Room Air Med/Allergies Allergies & Medications Allergies No Known Allergies Allergy (Verified 06/21/25 13:09) Medication Reconciliation albuterol sulfate 90 mcg/actuation aerosol inhaler 1 inh inhalation QID 02/17/24 [History Confirmed 06/21/25] ascorbic acid (vitamin C) 500 mg capsule mg PO 02/17/24 [History Confirmed 06/21/25] betamethasone dipropionate 0.05 % topical cream 1 applic topical QDAY PRN 02/17/24 [History Confirmed 06/21/25] celecoxib 100 mg capsule (Celebrex) 100 mg PO BID 02/17/24 [History Confirmed 06/21/25] cephalexin 250 mg capsule 250 mg PO BID 02/17/24 [History Confirmed 06/21/25] cholecalciferol (vitamin D3) 50 mcg (2,000 unit) capsule 50 mcg PO QDAY 02/17/24 [History Confirmed 06/21/25] clopidogrel 75 mg tablet (Plavix) 75 mg PO QDAY 02/17/24 [History Confirmed 06/21/25] coenzyme Q10 200 mg/gram oral powder (H2Q CoQ10) mg PO 02/17/24 [History Confirmed 06/21/25] eszopiclone 2 mg tablet (Lunesta) 2 mg PO QHS 02/17/24 [History Confirmed 06/21/25] fentanyl 50 mcg/hr transdermal patch 1 patch transdermal Q72H 02/17/24 [History Confirmed 06/21/25] fluticasone 250 mcg-salmeterol 50 mcg/dose blistr powdr for inhalation (Advair Diskus) 1 inh inhalation BID 02/17/24 [History Confirmed 06/21/25] furosemide 20 mg tablet (Lasix) 20 mg PO Q OTHER DAY 02/17/24 [History Confirmed 06/21/25] gabapentin 300 mg capsule 300 mg PO QDAY 02/17/24 [History Confirmed 06/21/25] hydrocodone bitartrate 10 mg capsule, oral only, extended rel 12 hr 10 mg PO Q12H 02/17/24 [History Confirmed 06/21/25] losartan 50 mg tablet 50 mg PO QDAY 02/17/24 [History Confirmed 06/21/25] mecobalamin (vitamin B12) 2,500 mcg chewable tablet mcg PO 02/17/24 [History Confirmed 06/21/25] methenamine hippurate 1 gram tablet 1 g PO Q12H 02/17/24 [History Confirmed 06/21/25] montelukast 10 mg tablet (Singulair) 10 mg PO QDAY 02/17/24 [History Confirmed 06/21/25] naldemedine 0.2 mg tablet (Symproic) 0.2 mg PO QDAY 02/17/24 [History Confirmed 06/21/25] nitroglycerin 0.4 % (w/w) rectal ointment 1 inch DE BID 02/17/24 [History Confirmed 06/21/25] omega-3 650 mg-dha 400 mg-epa 200 mg-fish oil-vit D3 300 unit capsule cap PO 02/17/24 [History Confirmed 06/21/25] omeprazole 20 mg capsule,delayed release 20 mg PO QDAY 02/17/24 [History Confirmed 06/21/25] prednisone 20 mg tablet 20 mg PO QDAY 02/17/24 [History Confirmed 06/21/25] rosuvastatin 20 mg tablet 20 mg PO QDAY 02/17/24 [History Confirmed 06/21/25] sertraline 20 mg/mL oral concentrate (Zoloft) 50 mg PO QDAY 02/17/24 [History Confirmed 06/21/25] triamcinolone acetonide 55 mcg nasal spray aerosol (24 Hour Nasal Allergy) 1 spray intranasal QDAY 02/17/24 [History Confirmed 06/21/25] vitamin E (dl, acetate) 180 mg (400 unit) capsule 180 mg PO QDAY 02/17/24 [History Confirmed 06/21/25] Exam Exam Patient is in no acute distress and is cooperative with the examination today. Breathing is nonlabored. In no respiratory distress. Bilateral extremities were evaluated and demonstrates sensation intact to light touch. Palpable pedal pulses are present. No significant edema is present. Bilateral hips were examined. The patient has no pain with log roll of the hips. Internal rotation to 30 degrees and external rotation to 30 degrees is painless. Negative FADIR. The left knee was examined. The left knee is in [varus] alignment. Range of motion from [0-115] degrees. Knee is stable to varus and valgus as well as AP translation with <5mm. Patient has a [negative] [place]. There is [no] pain with patellofemoral compression and [no] crepitus noted. The knee is [tender] to palpation [medially]. The right knee was also examined. The right knee is in [varus] alignment. Range of motion from [0-120] degrees. Knee is stable to varus and valgus as well as AP translation with <5mm. Patient has a [negative] [place]. There is [no] pain with patellofemoral compression and [no] crepitus noted. The knee is [tender] to palpation [medially]. Bilateral knee x-rays demonstrate severe arthritis in both knees. The left is greater than the right but there is complete joint space obliteration Assessment and Plan Problem List (1) Degenerative arthritis of knee, bilateral: Status: Acute Plan: 84-year-old female with bilateral knee pain and bilateral knee osteoarthritis. We discussed nonoperative and operative options. Given she had a recent valve replacement we recommend nonoperative treatment. Recommend knee cortisone injection as patient would like to proceed with conservative treatment at this time. The risks and benefits of the procedure were reviewed with the patient and patient gave verbal consent to continue with the procedure. Procedure: performed by Dr. Nava Using sterile technique the left knee was thoroughly prepped with alcohol, and approximately 1 cc of Depo-Medrol 80mg/mL and 4 cc of 0.2% ropivacaine was injected without resistance into the medial tibial femoral joint space. The patient tolerated the procedure. Recommend knee cortisone injection as patient would like to proceed with conservative treatment at this time. The risks and benefits of the procedure were reviewed with the patient and patient gave verbal consent to continue with the procedure. Procedure: performed by Dr. Nava Using sterile technique the Right knee was thoroughly prepped with alcohol, and approximately 1 cc of Depo-Medrol 80mg/mL and 4 cc of 0.2% ropivacaine was injected without resistance into the medial tibial femoral joint space. The patient tolerated the procedure. (2) Bilateral knee pain: Status: Acute Advanced Care Planning Discussion Advance care planning discussed with:: patient Office Procedures GNS Level of Care Nursing/Assessment Patient Status: Established Patient Nursing Assessment/Reassesment: Medication Reconciliation, Update PMH in EMR and Vital Signs Coordination of Care: Complex Care and Chronic Disease 1-5, Education Complex Pt/Fam, Consent,records obtained, informed consent, Results/Orders obtained and Staff clarify orders Special Needs: Language special needs Established Patient Charge Established Patient Point Assignment: 95 Established Patient Point Charge: EP Level 3 (80-115) Surgical Proc/IM SQ injection Minor Surgical Procedure: Yes (KNEE INJECTION) Medication Given Medication Given Medication Given: Yes Documented Dose Given: 2 Route: Infiitration Medication Given Medication Given Medication Given: Yes Documented Dose Given: 8 Route: Infiitration Office Meds methylprednisolone acetate 80 mg/mL suspension for injection Performing Provider: Hever Nava MD Performing Location: [facility] Administered by: Hever Nava MD on 06/21/25 13:47 Dose Route Admin Location Dispensed Lot Number Expiration Date Pack age [facility] Anesthesiologist 160 mg intra-articular KNEE 2 mL [id number] 02/24/27 [address]-7 [id number] [employer] ropivacaine (PF) 2 mg/mL (0.2 %) injection solution Performing Provider: Hever Nava MD Performing Location: [facility] Administered by: Hever Nava MD on 06/21/25 13:47 Dose Route Admin Location Dispensed Lot Number Expiration Date Pack age [facility] Anesthesiologist 40 mL Infiltration KNEE 40 mL [id number] 08/27/27 91425-905-07 [id number] [facility] Intake Visit Data Collection New Patient or Established: Established Patient (seen at [facility] within 3 years) Reason for Visit:: 3 MONTH BILATERAL KNEE PAIN Seen by Clinical Staff ONLY (RN/MA): No Verbal consent obtained for Telemed visit?: No Team Assistant Required: No PCP or OBGYN visit in last 3 months: Yes Hx Now: No Do You Feel Safe at Home: Yes Authorities Contacted: N/A Questionairres Past Medical History Past Medical History Have you ever been diagnosed with any of the following: Respiratory Problems Smoking: No Smoking Exposure: No Subjective Visit Visit for: follow up visit, knee and injections Immunization / Flu Flu Vaccine in the Last 12 Months: No Flu Vaccine Exclusion Criteria: No Exclusion Criteria History of Present Illness Chief complaint: 3 MONTH F/U KNEE INJECTION Patient is a pleasant 83-year-old female with bilateral knee pain worse on the right. This been ongoing for several years. She tried multiple injections with me. She recently had a valve replacement 9 month ago is on Plavix. She is looking to continue conservative treatment at this time Personal History Occupation: RETIRED [employer] provided: No Pain Pain level (0-10): 6 Pain duration: ON AND OFF Pain location: inside (medial), outside (lateral), anterior and posterior Pain quality: sharp, dull and aching Pain timing: increases with activity Associated signs & symptoms: weakness and stiffness Ambulatory data Ambulatory device: walker and none Treatments Number of previous injections: 1 Improvement with previous injections: Yes Improvement with PT: No Improvement with NSAIDS: no Review of Systems Review of Systems: All systems negative unless otherwise noted in HPI.
[2025-06-21 13:09] VITALS: BP 95/61; PULSE 57; RESP 18; TEMP 36.4; O2SAT 95; BMI 28.3
== END 2025-06-21 13:18 | disposition home or self-care (01) ==
LOC: HODSRG 12:55
PROVIDERS: PCP Internal Medicine Hospice and Palliative Medicine; Referring Provider Internal Medicine Hospice and Palliative Medicine; Supervising Provider Orthopaedic Surgery Adult Reconstructive Orthopaedic Surgery; Visit Provider Orthopaedic Surgery Adult Reconstructive Orthopaedic Surgery
DX: M17.0 Bilateral primary osteoarthritis of knee (principal); M25.562 Pain in left knee; M25.561 Pain in right knee
CPT/HCPCS: 20610; 99213; J1010; J2795; G0463